=== PATIENT | female | born 1955 | race Caucasian/White ===

== ENCOUNTER 2018-10-16 06:05 | Day surgery (SDC) | payer MEDICARE, OTHER ==
[~2018-10-16] VITALS: Ht 170.2 cm; Wt 126.7 kg
[~2018-10-16 06:05] MED LIST: AVANDAMET; Colace100 MG PO; Percocet 5-3251 EACH PO; TRAN2
[2018-10-16] MEDS ORDERED: CLON.1 (07:37)
[2018-10-16] MEDS ORDERED: ALBU90OI6 (07:38)
[2018-10-16] MEDS ORDERED: LISI20 (07:38)
[2018-10-16] MEDS ORDERED: METF500 (07:38)
[2018-10-16] MEDS ORDERED: VITAMIN D5000 UNIT (07:39)
== END 2018-10-16 09:04 | disposition home or self-care (01) ==
LOC: ORSCSDS 06:05
PROVIDERS: Orthopaedic Surgery
PROC: 0LN80ZZ Release Left Hand Tendon, Open Approach (ICD-10-PCS; principal; 2018-10-16 07:30)
PROC: 0JNK0ZZ Release Left Hand Subcutaneous Tissue and Fascia, Open Approach (ICD-10-PCS; principal; 2018-10-16 07:30)
DX: M72.0 Palmar fascial fibromatosis [Dupuytren] (principal); K21.9 Gastro-esophageal reflux disease without esophagitis; E11.9 Type 2 diabetes mellitus without complications; J45.909 Unspecified asthma, uncomplicated; M79.7 Fibromyalgia; Z87.891 Personal history of nicotine dependence; Z79.84 Long term (current) use of oral hypoglycemic drugs
CPT/HCPCS: 82947; 88304; J2250; J3010; J7120

== ENCOUNTER 2021-01-09 12:53 | Inpatient (IN) | payer MEDICARE ==
[~2021-01-09] VITALS: Ht 170.2 cm; Wt 127.0 kg
[~2021-01-09 12:53] MED LIST changes: +ALBU90OI6; +CLON.1 PO; +LISI20; +METF500 PO; +VITAMIN D31000 UNI1 PO
[2021-01-09 13:17] LABS: BASOPHILS ABSOLUTE AUTO 0.01 K/mm3 (0.00-0.23); BASOPHILS PERCENT AUTO 0 % (0-2); EOSINOPHILS PERCENT AUTO 0 % (0-6); Hematocrit 37.1 % (33.0-51.0); IMMATURE GRAN ABSOLUTE AUTO 0.04 K/mm3 (0.00-0.10); IMMATURE GRAN PERCENT AUTO 1 % (0-1); LYMPHOCYTES ABSOLUTE AUTO 0.68 K/mm3 (0.84-5.20); LYMPHOCYTES PERCENT AUTO 10 % (21-46); MONOCYTES ABSOLUTE AUTO 0.35 K/mm3 (0.16-1.47); MONOCYTES PERCENT AUTO 5 % (4-13); Mean Corpuscular Volume 86 fL (80-100); Mean Platelet Volume 10.7 fL (9.1-12.4); NEUTROPHILS PERCENT AUTO 85 % (41-73); Platelet Count 215 K/mm3 (150-400); RDW Coefficient Variation 13.2 % (11.7-14.2); RDW Standard Deviation 41.7 fL (35.1-46.3); Red Blood Cell Count 4.33 M/mm3 (3.80-5.20); White Blood Cell Count 7.08 K/mm3 (4.00-11.30)
[2021-01-09 13:41] LABS: Alanine Aminotransfer (ALT/SGP 47 U/L (12-78); Albumin, Blood 2.8 g/dL (3.4-5.0); Albumin/Globulin Ratio 0.7 (0.8-1.8); Alk Phos 98 U/L (50-136); Anion Gap 10 mmol/L (6-16); Aspartate Aminotrans (AST/SGOT 60 U/L (12-37); Bilirubin, Total 0.7 mg/dL (0.1-1.0); Blood Urea Nitrogen 13 mg/dL (8-24); CO2, Blood 23 mmol/L (21-32); Calcium, Blood 8.5 mg/dL (8.5-10.1); Chloride, Blood 99 mmol/L (98-108); Creatinine, Blood 0.68 mg/dL (0.40-1.00); Ferritin, Serum 866 ng/mL (8-252); Globulin, Blood 3.8 g/dL (2.2-4.0); Glomerular Filtration Rate >60 (60-); Glucose, Blood 103 mg/dL (70-99); Lactate Dehydrogenase (Ld),Bld 532 U/L (100-240); Sodium, Blood 132 mmol/L (136-145); Total Protein, Blood 6.6 g/dL (6.4-8.2)
[2021-01-09] MEDS ORDERED: SYMBICORT 80-10.2 GM INH (14:22)
[2021-01-09] MEDS ORDERED: Prinivil10 MG PO (14:23)
[2021-01-09] MEDS ORDERED: GLIP5 PO (14:24)
--- NOTE | 2021-01-09 19:43 | NUR ---
SHIFT SUMMARY: PATIENT ADMIT (INPT) FROM ED THIS SHIFT. PT A&O; CALM AND COOPERATIVE WITH CARE. NO C/O PAIN THIS SHIFT. IV STEROIDS & ANTIVIRALS CONTINUING. REPORT GIVEN TO ONCOMING RN.
[2021-01-10 06:52] LABS: BASOPHILS ABSOLUTE AUTO 0.01 K/mm3 (0.00-0.23); BASOPHILS PERCENT AUTO 0 % (0-2); EOSINOPHILS PERCENT AUTO 0 % (0-6); Hematocrit 37.8 % (33.0-51.0); Hemoglobin 13.1 g/dL (11.5-16.0); Mean Corpuscular HGB 30.2 pg (26.0-34.0); Mean Corpuscular HGB Conc 34.7 g/dL (31.5-36.5); Mean Corpuscular Volume 87 fL (80-100); Mean Platelet Volume 11.4 fL (9.1-12.4); Platelet Count 185 K/mm3 (150-400); RDW Coefficient Variation 13.2 % (11.7-14.2); RDW Standard Deviation 41.8 fL (35.1-46.3); Red Blood Cell Count 4.34 M/mm3 (3.80-5.20); White Blood Cell Count 3.95 K/mm3 (4.00-11.30)
[2021-01-10 06:53] LABS: IMMATURE GRAN ABSOLUTE AUTO 0.05 K/mm3 (0.00-0.10); IMMATURE GRAN PERCENT AUTO 1 % (0-1); LYMPHOCYTES ABSOLUTE AUTO 0.77 K/mm3 (0.84-5.20); LYMPHOCYTES PERCENT AUTO 20 % (21-46); MONOCYTES ABSOLUTE AUTO 0.36 K/mm3 (0.16-1.47); MONOCYTES PERCENT AUTO 9 % (4-13); NEUTROPHILS ABSOLUTE AUTO 2.76 K/mm3 (1.96-9.15); NEUTROPHILS PERCENT AUTO 70 % (41-73)
[2021-01-10 07:13] LABS: Alanine Aminotransfer (ALT/SGP 46 U/L (12-78); Albumin, Blood 2.5 g/dL (3.4-5.0); Albumin/Globulin Ratio 0.6 (0.8-1.8); Alk Phos 98 U/L (50-136); Anion Gap 10 mmol/L (6-16); Aspartate Aminotrans (AST/SGOT 46 U/L (12-37); Bilirubin, Total 0.6 mg/dL (0.1-1.0); Blood Urea Nitrogen 19 mg/dL (8-24); Bun/Creatinine Ratio 30.2 (12.0-20.0); CO2, Blood 22 mmol/L (21-32); Calcium, Blood 8.5 mg/dL (8.5-10.1); Chloride, Blood 100 mmol/L (98-108); Creatinine, Blood 0.63 mg/dL (0.40-1.00); Globulin, Blood 4.3 g/dL (2.2-4.0); Glomerular Filtration Rate >60 (60-); Glucose, Blood 222 mg/dL (70-99); Sodium, Blood 132 mmol/L (136-145); Total Protein, Blood 6.8 g/dL (6.4-8.2)
[2021-01-10 07:35] LABS: BASOPHILS PERCENT MAN 0 % (0-2); EOSINOPHILS PERCENT MAN 0 % (0-6); LYMPHOCYTES ABSOLUTE MAN 0.67 K/mm3 (0.84-5.20); LYMPHOCYTES PERCENT MAN 17 % (21-46); MONOCYTES ABSOLUTE MAN 0.19 K/mm3 (0.16-1.47); MONOCYTES PERCENT MAN 5 % (4-13); MYELOCYTE ABSOLUTE MAN 0.03 K/mm3 (0.00-0.00); MYELOCYTE PERCENT MAN 1 % (0-0); NEUTROPHILS ABSOLUTE MAN 3.04 K/mm3 (1.96-9.15); SEG NEUTROPHILS PERCENT MAN 77 % (41-73); TOTAL CELLS COUNTED 100
--- NOTE | 2021-01-10 11:25 | NUR ---
Introduction: PT self referal. Assessment: PT presented sitting upright in bed, pleasant demeanor. PT said request for visit, was for prayer. PT has son and also, both at home with Covid, that she is worried for. PT spoke optimistically of returning home soon and spending time sitting on her outside deck and reading her bible. Intervention: PT offered prayer. PT offered scripture reading. Outcome: PT received prayer. PT received scripture reading. Follow-Up: As needed or requested.
--- NOTE | 2021-01-10 20:10 | NUR ---
SHIFT SUMMARY: NO ACUTE EVENTS TO REPORT THIS SHIFT. PT A&O ; CALM AND COOPERATIVE WITH CARE. NO C/O PAIN THIS SHIFT. STEROIDS & REMDESEVIR CONTINUING. REPORT GIVEN TO ONCOMING RN.
[2021-01-11 05:37] LABS: Anion Gap 8 mmol/L (6-16); Blood Urea Nitrogen 21 mg/dL (8-24); Bun/Creatinine Ratio 35.7 (12.0-20.0); CO2, Blood 24 mmol/L (21-32); Calcium, Blood 8.8 mg/dL (8.5-10.1); Chloride, Blood 101 mmol/L (98-108); Creatinine, Blood 0.59 mg/dL (0.40-1.00); Glomerular Filtration Rate >60 (60-); Glucose, Blood 291 mg/dL (70-99); Potassium, Blood 3.8 mmol/L (3.5-5.5); Sodium, Blood 133 mmol/L (136-145)
--- NOTE | 2021-01-12 05:08 | NUR ---
SHIFT SUMMARY AOX4. SLOW TO RESPOND. DENIES SOB. COVID +. SPO2 @88% ON 10L OXIMIZER, INCREASED O2 TO 14L c SPO2 @91%. REST OF VSS. DENIES PAIN, N/V. ASSISTED c SHOWER TONIGHT. CALL LIGHT IN REACH.
--- NOTE | 2021-01-12 18:40 | NUR ---
PT IS COVID POSITIVE, NO TELE, PT DENIES PAIN, N/V, SOB PT IS ALERT ORIENTED, PT IS STANDBY ASSIST, PT IS RESTING IN BED, BED IN LOW POSITON, CALL LIGHT WITHIN [facility] [place], WILL CONTINUE TO MONITOR
[2021-01-13 05:13] LABS: BASOPHILS ABSOLUTE AUTO 0.02 K/mm3 (0.00-0.23); BASOPHILS PERCENT AUTO 0 % (0-2); EOSINOPHILS PERCENT AUTO 0 % (0-6); Hematocrit 36.4 % (33.0-51.0); Hemoglobin 12.8 g/dL (11.5-16.0); IMMATURE GRAN ABSOLUTE AUTO 0.14 K/mm3 (0.00-0.10); IMMATURE GRAN PERCENT AUTO 1 % (0-1); LYMPHOCYTES ABSOLUTE AUTO 1.41 K/mm3 (0.84-5.20); LYMPHOCYTES PERCENT AUTO 15 % (21-46); MONOCYTES ABSOLUTE AUTO 0.38 K/mm3 (0.16-1.47); MONOCYTES PERCENT AUTO 4 % (4-13); Mean Corpuscular HGB 29.8 pg (26.0-34.0); Mean Corpuscular HGB Conc 35.2 g/dL (31.5-36.5); Mean Corpuscular Volume 85 fL (80-100); Mean Platelet Volume 10.4 fL (9.1-12.4); NEUTROPHILS ABSOLUTE AUTO 7.73 K/mm3 (1.96-9.15); NEUTROPHILS PERCENT AUTO 80 % (41-73); Platelet Count 305 K/mm3 (150-400); RDW Coefficient Variation 13.4 % (11.7-14.2); RDW Standard Deviation 41.7 fL (35.1-46.3); White Blood Cell Count 9.68 K/mm3 (4.00-11.30)
--- NOTE | 2021-01-13 05:34 | NUR ---
SUMMARY: PT A/OX2-3 BUT IS VERY FORGETFUL AND CALLS FREQUENTLY FOR NON-ACUTE DEMANDS. SHE'S SBA OOB AND CONTINENT TO THE BSC. SHE REMAINS ON 14L OXIMIZER W/O S/S SOB OR DYSPNEA. NO PAIN/COMPLAINTS AND VSS W/O ACUTE CHANGES. WCTM AND REPORT TO DAY RN.
[2021-01-13 05:46] LABS: Alanine Aminotransfer (ALT/SGP 56 U/L (12-78); Albumin, Blood 2.7 g/dL (3.4-5.0); Albumin/Globulin Ratio 0.7 (0.8-1.8); Alk Phos 100 U/L (50-136); Anion Gap 6 mmol/L (6-16); Aspartate Aminotrans (AST/SGOT 40 U/L (12-37); Bilirubin, Total 0.6 mg/dL (0.1-1.0); Blood Urea Nitrogen 11 mg/dL (8-24); Bun/Creatinine Ratio 19.2 (12.0-20.0); CO2, Blood 24 mmol/L (21-32); Chloride, Blood 108 mmol/L (98-108); Creatinine, Blood 0.57 mg/dL (0.40-1.00); Globulin, Blood 3.9 g/dL (2.2-4.0); Glomerular Filtration Rate >60 (60-); Glucose, Blood 182 mg/dL (70-99); Potassium, Blood 3.6 mmol/L (3.5-5.5); Sodium, Blood 138 mmol/L (136-145); Total Protein, Blood 6.6 g/dL (6.4-8.2)
--- NOTE | 2021-01-13 11:08 | NUR ---
Introduction: PT refered by nursing staff. Assessment: PT presented seated in bed, with pleasant demeanor. PT expressed worry and anxiety, in regards to hospital stay and also, being unable to care for and son at home, both of whom are ill with Covid. PT related how dear scripture is to her well being and dissapointment when scripture cannot be recalled by memory. Visit was shortened due to medication being administered. Intervention: PT offered scripture reading. Outcome: PT received scripture reading and was encouraged enought to recall other scripture from memory. Follow-Up: As needed or requested.
--- NOTE | 2021-01-13 18:53 | NUR ---
PT IS COVID POSITIVE, PT HAVE SOB WITH ACTIVITIES, PT HAVE PRN MEDS ORDER FOR PAIN, PT IS STANDBY ASSIST,PT IS FORGETFULL AT TIMES, PT IS AO, PT ON 15L OXYMIZER, PT IS BED, BED IN LOW POSITION, CALL LIGHT WITHIN REACH,WILL CONTINUE TO MONITOR.
--- NOTE | 2021-01-13 19:00 | NUR ---
ASSUMED CARE RECEIVED REPORT FROM GIOVANNA PABLO. PT RESTING, IN NAD. NO ACUTE NEEDS ASSESSED AT THIS TIME. CALL LIGHT, POSSESSIONS IN REACH, BED IN LOW AND LOCKED POSITION WITH ALARMS ON. TM.
[2021-01-14 05:32] LABS: BASOPHILS ABSOLUTE AUTO 0.02 K/mm3 (0.00-0.23); BASOPHILS PERCENT AUTO 0 % (0-2); EOSINOPHILS PERCENT AUTO 0 % (0-6); Hematocrit 38.2 % (33.0-51.0); Hemoglobin 13.3 g/dL (11.5-16.0); IMMATURE GRAN ABSOLUTE AUTO 0.14 K/mm3 (0.00-0.10); IMMATURE GRAN PERCENT AUTO 1 % (0-1); LYMPHOCYTES ABSOLUTE AUTO 1.51 K/mm3 (0.84-5.20); LYMPHOCYTES PERCENT AUTO 12 % (21-46); MONOCYTES ABSOLUTE AUTO 0.37 K/mm3 (0.16-1.47); MONOCYTES PERCENT AUTO 3 % (4-13); Mean Corpuscular HGB 29.7 pg (26.0-34.0); Mean Corpuscular HGB Conc 34.8 g/dL (31.5-36.5); Mean Corpuscular Volume 85 fL (80-100); Mean Platelet Volume 11.1 fL (9.1-12.4); NEUTROPHILS ABSOLUTE AUTO 10.35 K/mm3 (1.96-9.15); NEUTROPHILS PERCENT AUTO 84 % (41-73); Platelet Count 346 K/mm3 (150-400); RDW Coefficient Variation 13.5 % (11.7-14.2); RDW Standard Deviation 42.3 fL (35.1-46.3); Red Blood Cell Count 4.48 M/mm3 (3.80-5.20); White Blood Cell Count 12.39 K/mm3 (4.00-11.30)
[2021-01-14 06:09] LABS: Alanine Aminotransfer (ALT/SGP 63 U/L (12-78); Albumin, Blood 2.7 g/dL (3.4-5.0); Albumin/Globulin Ratio 0.7 (0.8-1.8); Alk Phos 113 U/L (50-136); Anion Gap 6 mmol/L (6-16); Aspartate Aminotrans (AST/SGOT 40 U/L (12-37); Bilirubin, Total 0.6 mg/dL (0.1-1.0); Blood Urea Nitrogen 11 mg/dL (8-24); CO2, Blood 25 mmol/L (21-32); Calcium, Blood 9.2 mg/dL (8.5-10.1); Chloride, Blood 107 mmol/L (98-108); Creatinine, Blood 0.55 mg/dL (0.40-1.00); Glomerular Filtration Rate >60 (60-); Glucose, Blood 189 mg/dL (70-99); Potassium, Blood 3.5 mmol/L (3.5-5.5); Sodium, Blood 138 mmol/L (136-145); Total Protein, Blood 6.7 g/dL (6.4-8.2)
--- NOTE | 2021-01-14 06:56 | NUR ---
SHIFT SUMMARY PT RESTING, IN NAD. NO ACUTE NEEDS ASSESSED AT THIS TIME. VS REVIEWED, O2 SATS 90-93% ON 16L/OXYMIZER; OTHER VS WNL. NO ACUTE CONCERNS TO REPORT OVERNIGHT, APPEARED TO SLEEP WELL. CALL LIGHT, POSSESSIONS IN REACH, BED IN LOW AND LOCKED POSITION WITH ALARMS ON. REPORT GIVEN TO GIOVANNA GONZALEZ.
--- NOTE | 2021-01-14 18:27 | NUR ---
a+orintated to self and place, medicated for back pain to pt satisfaction, call light in reach, saline locked, 13L via oximizer, will continue to monitor and treat until share bsr with noc nurse
--- NOTE | 2021-01-14 19:05 | NUR ---
ASSUMED CARE RECEIVED REPORT FROM GIOVANNA GONZALEZ. PT RESTING, IN NAD. NO ACUTE NEEDS ASSESSED AT THIS TIME. CALL LIGHT, POSSESSIONS IN REACH, BED IN LOW AND LOCKED POSITION WITH ALARMS ON.
[2021-01-15 05:46] LABS: BASOPHILS ABSOLUTE AUTO 0.04 K/mm3 (0.00-0.23); BASOPHILS PERCENT AUTO 0 % (0-2); EOSINOPHILS ABSOLUTE AUTO 0.06 K/mm3 (0.00-0.68); EOSINOPHILS PERCENT AUTO 1 % (0-6); Hematocrit 37.6 % (33.0-51.0); Hemoglobin 13.3 g/dL (11.5-16.0); IMMATURE GRAN ABSOLUTE AUTO 0.21 K/mm3 (0.00-0.10); IMMATURE GRAN PERCENT AUTO 2 % (0-1); LYMPHOCYTES ABSOLUTE AUTO 1.45 K/mm3 (0.84-5.20); LYMPHOCYTES PERCENT AUTO 14 % (21-46); MONOCYTES PERCENT AUTO 4 % (4-13); Mean Corpuscular HGB Conc 35.4 g/dL (31.5-36.5); Mean Corpuscular Volume 85 fL (80-100); Mean Platelet Volume 10.9 fL (9.1-12.4); NEUTROPHILS ABSOLUTE AUTO 8.53 K/mm3 (1.96-9.15); NEUTROPHILS PERCENT AUTO 80 % (41-73); Platelet Count 314 K/mm3 (150-400); RDW Coefficient Variation 13.5 % (11.7-14.2); RDW Standard Deviation 42.3 fL (35.1-46.3); Red Blood Cell Count 4.43 M/mm3 (3.80-5.20); White Blood Cell Count 10.69 K/mm3 (4.00-11.30)
[2021-01-15 06:16] LABS: Alanine Aminotransfer (ALT/SGP 61 U/L (12-78); Albumin, Blood 2.5 g/dL (3.4-5.0); Albumin/Globulin Ratio 0.7 (0.8-1.8); Alk Phos 126 U/L (50-136); Anion Gap 7 mmol/L (6-16); Aspartate Aminotrans (AST/SGOT 31 U/L (12-37); Bilirubin, Total 0.7 mg/dL (0.1-1.0); Blood Urea Nitrogen 13 mg/dL (8-24); Bun/Creatinine Ratio 21.7 (12.0-20.0); CO2, Blood 24 mmol/L (21-32); Calcium, Blood 8.9 mg/dL (8.5-10.1); Chloride, Blood 106 mmol/L (98-108); Globulin, Blood 3.8 g/dL (2.2-4.0); Glomerular Filtration Rate >60 (60-); Glucose, Blood 207 mg/dL (70-99); Potassium, Blood 3.6 mmol/L (3.5-5.5); Sodium, Blood 137 mmol/L (136-145); Total Protein, Blood 6.3 g/dL (6.4-8.2)
--- NOTE | 2021-01-15 07:00 | NUR ---
SHIFT SUMMARY PT RESTING, IN NAD. APPEARED INCREASINGLY CONFUSED AT TIMES T/O NIGHT, RE-DIRECTABLE. VS REVIEWED,WNL. NO OTHER ACUTE CONCERNS TO REPORT OVERNIGHT. DENIES NEEDS AT THIS TIME. CALL LIGHT, POSSESSIONS IN REACH, BED IN LOW AND LOCKED POSITION WITH ALARMS ON. REPORT GIVEN TO GIOVANNA SHORT.
--- NOTE | 2021-01-15 18:34 | NUR ---
SHIFT SUMMARY PT IS AO WITH CONFUSION. PT MEDICATED FOR ANXIETY X2 THIS SHIFT. PT INSISTS ONN LEAVING FACILITY SINCE ADMIT. PT IS ON 13 L VIA OXYMIZER. PT DENIES N/V, SOB. ENHANCED ISOLATION PRECAUTIONS MAINTAINED T/O SHIFT. PT IS ONE ASSIST TO BCC. PT IS IN BED, CALL LIGHT IN REACH, LOW POSITION.
[2021-01-16 00:33] LABS: PCO2 Arterial 31.6 mmHg (35-45); PO2 Arterial 53.5 mmHg (80-100); pH Blood Arterial 7.49 (7.35-7.45)
--- NOTE | 2021-01-16 04:23 | NUR ---
SHIFT SUMMARY PT CONFUSED AND SLEEPY T/O SHIFT, REMOVING O2 CONTINUALLY, TITRATED O2 TO 4L NC- CURRENT O2 SATS=94% DESATS W/ACTIVITY, SLEPT T/O SHIFT, UP W/MINIMAL ASSIST TO BSC, SLEEPING AT THIS TIME, CALL LIGHT IN REACH, WILL CONT TO MONITOR UNTIL REPORT GIVEN TO DAY RN.
--- NOTE | 2021-01-16 16:24 | NUR ---
SHIFT SUMMARY PT IS AOX4 THIS AM WITH INTERMITTENT CONFUSION THIS ROCKY. PT DENIES PAIN, N/V, SOB. PT IS ONE ASSIST IN ROOM. ENHANCED ISOLATION PRECAUTIONS MAINTAINED T/O SHIFT. PT APPETITE IS POOR TO GOOD DEPENDING ON MEAL. PT IS ON 4 L O2 VIA NC WITH SATS GREATER THAN 90%. PT FREQUENTLY REMOVES O2. PT HOPES TO DC HOME TOMORROW. PT IS AWAITING BM AFTER BOWEL PROTOCOL. PT IS ONE ASSIST TO BCC AND TIRES WITH EXERTION. PT IS IN BED, CALL LIGHT IN REACH, LOW POSITION.
--- NOTE | 2021-01-17 04:48 | NUR ---
SHIFT SUMMARY NO ACUTE CHANGES THIS SHIFT, CONTINUES TO REMOVE 02 FREQUENTLY STATES THAT IT "DRIES OUT SINUSES", ADDED HUMIDIFIER BUT PT CONTINUES TO "FORGET" TO LEAVE NC IN PLACE, SLEPT WELL T/O THE NIGHT & SLEEPING AT THIS TIME, CALL LIGHT IN PLACE, WILL CONT TO MONITOR UNTIL REPORT GIVEN TO DAY RN.
[2021-01-17 09:46] LABS: BASOPHILS ABSOLUTE AUTO 0.05 K/mm3 (0.00-0.23); BASOPHILS PERCENT AUTO 0 % (0-2); EOSINOPHILS ABSOLUTE AUTO 0.24 K/mm3 (0.00-0.68); EOSINOPHILS PERCENT AUTO 2 % (0-6); Hematocrit 43.2 % (33.0-51.0); Hemoglobin 14.8 g/dL (11.5-16.0); IMMATURE GRAN ABSOLUTE AUTO 0.32 K/mm3 (0.00-0.10); IMMATURE GRAN PERCENT AUTO 2 % (0-1); LYMPHOCYTES ABSOLUTE AUTO 1.87 K/mm3 (0.84-5.20); LYMPHOCYTES PERCENT AUTO 13 % (21-46); MONOCYTES ABSOLUTE AUTO 0.73 K/mm3 (0.16-1.47); MONOCYTES PERCENT AUTO 5 % (4-13); Mean Corpuscular HGB 30.1 pg (26.0-34.0); Mean Corpuscular HGB Conc 34.3 g/dL (31.5-36.5); Mean Corpuscular Volume 88 fL (80-100); NEUTROPHILS PERCENT AUTO 78 % (41-73); Platelet Count 429 K/mm3 (150-400); RDW Coefficient Variation 13.8 % (11.7-14.2); RDW Standard Deviation 43.7 fL (35.1-46.3); Red Blood Cell Count 4.92 M/mm3 (3.80-5.20); White Blood Cell Count 14.81 K/mm3 (4.00-11.30)
[2021-01-17 10:03] LABS: Anion Gap 7 mmol/L (6-16); Blood Urea Nitrogen 17 mg/dL (8-24); Bun/Creatinine Ratio 22.1 (12.0-20.0); CO2, Blood 25 mmol/L (21-32); Calcium, Blood 9.3 mg/dL (8.5-10.1); Chloride, Blood 103 mmol/L (98-108); Creatinine, Blood 0.77 mg/dL (0.40-1.00); Glomerular Filtration Rate >60 (60-); Glucose, Blood 235 mg/dL (70-99); Sodium, Blood 135 mmol/L (136-145)
--- NOTE | 2021-01-17 15:06 | NUR ---
TRANSFER ROOMS ASSUMED CARE OF PT AT 1315, MEDICATED WITH APAT FOR C/O LOW BACK PAIN. NEW ROOM ASSGNED FOR PT TO SHARE ROOM WITH WHO IS ALSO ADMITTED FOR COVID. REPORT GIVEN TO LILLIAM AND PT TRANSFERRED TO RM 308-1.
--- NOTE | 2021-01-17 15:42 | NUR ---
ASSUMED CARE OF PT. REPORT RECEIVED FROM DELORIS HEREDIA. PT ORIENTED TO HER NEW ROOM, CALL LIGHT. NO ACUTE CONCERNS AT THIS TIME.
--- NOTE | 2021-01-17 18:19 | NUR ---
SHIFT SUMMARY: PT A/O STANDBY ASSIT. PT ON 3 LPM VIA NC, CONTINUES TO HAVE WET HARSH COUGH. PT HAS GOOD APPETITE. MOVED TO ROOM 308-01 NOW STAYS IN ROOM WITH HER SPOUSE. PT EDUCATED AND ENCOURAGED TO USE INCETIVE SPIROMETER. PT VU. NO ACUTE CHANGES THIS SHIFT.
--- NOTE | 2021-01-17 22:50 | NUR ---
BG OVER 350 DR. HARDING CALL AND NOTIFIED. OF BG OF 374 VERIFIED ON GLUCOSE MACHINE. PT TO RECEIVE 25 UNITS SEMGLEE. NO ADDITIONAL ORDERS GIVEN.
--- NOTE | 2021-01-18 05:23 | NUR ---
SHIFT SUMMARY NO ACUTE CHANGES TO REPORT THIS SHIFT. PT HAS RESTED MOST OF THE NIGHT. PT REMAINS ON 3L O2. RESP E/U. PT INDEPENDENT TO THE BSC. A/OX4 BUT IS VERY FORGETFUL. PT HAS NO RESPIRATORY COMPLAINTS. PLAN IS FOR POSSIBLE DC TODAY. BED IN LOWEST POSITION, CALL LIGHT WITHIN REACH.
[2021-01-18 09:20] LABS: BASOPHILS ABSOLUTE AUTO 0.06 K/mm3 (0.00-0.23); BASOPHILS PERCENT AUTO 1 % (0-2); EOSINOPHILS ABSOLUTE AUTO 0.14 K/mm3 (0.00-0.68); EOSINOPHILS PERCENT AUTO 1 % (0-6); Hematocrit 43.9 % (33.0-51.0); Hemoglobin 15.1 g/dL (11.5-16.0); IMMATURE GRAN ABSOLUTE AUTO 0.32 K/mm3 (0.00-0.10); IMMATURE GRAN PERCENT AUTO 3 % (0-1); LYMPHOCYTES ABSOLUTE AUTO 2.03 K/mm3 (0.84-5.20); LYMPHOCYTES PERCENT AUTO 16 % (21-46); MONOCYTES ABSOLUTE AUTO 0.76 K/mm3 (0.16-1.47); MONOCYTES PERCENT AUTO 6 % (4-13); Mean Corpuscular HGB 29.7 pg (26.0-34.0); Mean Corpuscular HGB Conc 34.4 g/dL (31.5-36.5); Mean Corpuscular Volume 86 fL (80-100); Mean Platelet Volume 11.5 fL (9.1-12.4); NEUTROPHILS ABSOLUTE AUTO 9.23 K/mm3 (1.96-9.15); NEUTROPHILS PERCENT AUTO 74 % (41-73); Platelet Count 370 K/mm3 (150-400); RDW Coefficient Variation 13.5 % (11.7-14.2); RDW Standard Deviation 42.6 fL (35.1-46.3); Red Blood Cell Count 5.08 M/mm3 (3.80-5.20); White Blood Cell Count 12.54 K/mm3 (4.00-11.30)
[2021-01-18 10:09] LABS: Anion Gap 9 mmol/L (6-16); Blood Urea Nitrogen 15 mg/dL (8-24); Bun/Creatinine Ratio 25.6 (12.0-20.0); CO2, Blood 23 mmol/L (21-32); Calcium, Blood 9.2 mg/dL (8.5-10.1); Chloride, Blood 103 mmol/L (98-108); Creatinine, Blood 0.59 mg/dL (0.40-1.00); Glomerular Filtration Rate >60 (60-); Glucose, Blood 213 mg/dL (70-99); Potassium, Blood 3.9 mmol/L (3.5-5.5); Sodium, Blood 135 mmol/L (136-145)
--- NOTE | 2021-01-18 11:41 | NUR ---
HOME O2 EVAL: PT SATS ON NO OXYGEN WAS 84%. PT ON 3 LPM VIA NC WAS 92%. PT O2 SATS WOULD NOT REGISTER ON METER WHILE AMBULATING. PT REQUESTS HOME O2 DUE TO COVID 19 ILLNESS.
[2021-01-18] MEDS ORDERED: Acetaminophen325 M1 PO (12:46)
[2021-01-18] MEDS ORDERED: PROAIR DIGIHAL90 MCG INH (12:48)
[2021-01-18] MEDS ORDERED: BENZ100A PO (12:48)
[2021-01-18] MEDS ORDERED: BUSP5 PO (12:49)
--- NOTE | 2021-01-18 15:03 | NUR ---
DISCHARGE NOTE: PT DISCHARGED TO HOME. PT INSTRUCTIONS GIVEN AND REQUESTED SHE CALL AND SET UP APPOINTMENT WITH PCP TODAY SINCE WE WERE UNABLE TO CONTACT NO ONE ANSWERED THE PHONE. PT VU. PT HAD NO IV. PT BELONGINGS PACKED AND SENT WITH HER. PT O2 TANK ARRIVED AND SHE WAS SENT ON 3 LPM VIA NC TO POV, WITH SON TAKING HER INTO HIS CARE. PT ESCORTED TO POV VIA WC BY HENRIETTA BARR.
== END 2021-01-18 14:40 | disposition home health service (06) | DRG 177 ==
LOC: ER 12:53 → MEDS 15:39 → ENPENDDIS 01-18 12:18 → MEDS 01-18 14:40
PROVIDERS: Emergency Medicine; Family Medicine; Internal Medicine; Nurse Practitioner Acute Care; ADMIT Hospitalist
PROC: 8E0ZXY6 Isolation (ICD-10-PCS; principal; 2021-01-09)
PROC: XW033E5 Introduction of Remdesivir Anti-infective into Peripheral Vein, Percutaneous Approach, New Technology Group 5 (ICD-10-PCS; 2021-01-09)
PROC: 3E0333Z Introduction of Anti-inflammatory into Peripheral Vein, Percutaneous Approach (ICD-10-PCS; 2021-01-09)
DX: U07.1 COVID-19 (principal); J96.01 Acute respiratory failure with hypoxia; J12.82 Pneumonia due to coronavirus disease 2019; Z68.41 Body mass index [BMI] 40.0-44.9, adult; E87.1 Hypo-osmolality and hyponatremia; J44.0 Chronic obstructive pulmonary disease with (acute) lower respiratory infection; G72.81 Critical illness myopathy; E66.01 Morbid (severe) obesity due to excess calories; R19.7 Diarrhea, unspecified; E11.65 Type 2 diabetes mellitus with hyperglycemia; F41.9 Anxiety disorder, unspecified; M62.838 Other muscle spasm; I10 Essential (primary) hypertension; Z88.1 Allergy status to other antibiotic agents; Z88.5 Allergy status to narcotic agent; Z88.0 Allergy status to penicillin; Z98.890 Other specified postprocedural states; Z79.84 Long term (current) use of oral hypoglycemic drugs; Z79.899 Other long term (current) drug therapy; Z87.891 Personal history of nicotine dependence
CPT/HCPCS: 36415; 36600; 71045; 80048; 80053; 82728; 82803; 82947; 83036; 83615; 83880; 85025; 85379; 93005; 93010; 94640; 94664; 94760; 94762; 96365; 96375; 97110; 97116; 97162; 99285-25; A9270; C9113; J1100; J1650; J1815; J3010; J7030

== ENCOUNTER → 2021-03-02 | Outpatient (CLI) | payer MEDICARE ==
[~2021-03-02] MED LIST changes: +Acetaminophen325 M1 PO; +BENZ100A PO; +BUSP5 PO; +GLIP5 PO; +PROAIR DIGIHAL90 MCG INH; +Prinivil10 MG PO; +SYMBICORT 80-10.2 GM INH
== END ==
LOC: LAB SHORT 17:00
DX: L97.509 Non-pressure chronic ulcer of other part of unspecified foot with unspecified severity (principal); Z88.0 Allergy status to penicillin; Z88.1 Allergy status to other antibiotic agents; Z88.5 Allergy status to narcotic agent
CPT/HCPCS: 87070; 87075; 87205

== ENCOUNTER 2022-12-20 11:08 | Day surgery (SDC) | payer MEDICARE ==
[~2022-12-20] VITALS: Ht 170.2 cm; Wt 120.2 kg
--- NOTE | 2022-12-20 11:52 | NUR ---
12/20/22 1152 Dandy Quintana CALL LIGHT WITHIN REACH. TETRACAINE IN RIGHT EYE AT 1135 AND PLEDGETT IN AT 1136
[2022-12-20 13:30] VITALS: BP 141/64
--- NOTE | 2022-12-20 13:43 | NUR ---
12/20/22 1343 Mary Kate Corey IV REMOVED, CANNULA INTACT PT TOLERATED WELL. IV SITE WNL. PT DENIES PAIN AND NAUSEA
== END 2022-12-20 13:49 | disposition home or self-care (01) ==
LOC: ORSCSDS 11:08
PROVIDERS: Ophthalmology
PROC: 08RJ3JZ Replacement of Right Lens with Synthetic Substitute, Percutaneous Approach (ICD-10-PCS; principal; 2022-12-20 13:00)
DX: E11.36 Type 2 diabetes mellitus with diabetic cataract (principal); H25.11 Age-related nuclear cataract, right eye; I10 Essential (primary) hypertension; J45.909 Unspecified asthma, uncomplicated; E66.9 Obesity, unspecified; Z68.41 Body mass index [BMI] 40.0-44.9, adult; Z79.84 Long term (current) use of oral hypoglycemic drugs; Z79.899 Other long term (current) drug therapy
CPT/HCPCS: 82947; J2001; J2250; J3010; J3301; J7040; V2632

== ENCOUNTER 2022-12-27 11:42 | Day surgery (SDC) | payer MEDICARE ==
[~2022-12-27] VITALS: Ht 170.2 cm; Wt 121.1 kg
--- NOTE | 2022-12-27 11:59 | NUR ---
12/27/22 1159 Nery Mckinley TETRACAINE TO LEFT EYE AT 1155 PLEDGET TO LEFT EYE AT 1156 BY [facility].GIULIA
[2022-12-27 13:41] VITALS: BP 137/62
--- NOTE | 2022-12-27 15:13 | NUR ---
12/27/22 1513 Luis Eduardo Uriarte IV REMOVED INTACT. SITE WNL.
== END 2022-12-27 13:58 | disposition home or self-care (01) ==
LOC: ORSCSDS 11:42
PROVIDERS: Ophthalmology
PROC: 08DK3ZZ Extraction of Left Lens, Percutaneous Approach (ICD-10-PCS; principal; 2022-12-27 13:00)
DX: E11.36 Type 2 diabetes mellitus with diabetic cataract (principal); H25.13 Age-related nuclear cataract, bilateral; I10 Essential (primary) hypertension; J45.909 Unspecified asthma, uncomplicated; E66.01 Morbid (severe) obesity due to excess calories; Z68.41 Body mass index [BMI] 40.0-44.9, adult; Z79.84 Long term (current) use of oral hypoglycemic drugs; Z79.899 Other long term (current) drug therapy
CPT/HCPCS: 82947; J2001; J2250; J3010; J3301; J7040; V2632

== ENCOUNTER 2023-10-30 06:04 | Day surgery (SDC) | payer MEDICARE ==
[~2023-10-30 06:04] MED LIST changes: +GLIP2.5ER PO; +METFORMIN HCL500 MG PO
[2023-10-30] MEDS ORDERED: Clindamycin 900mg in D5W 50ML 50 ML IV ONE (06:28)
[2023-10-30] MEDS ORDERED: Lactated Ringer's 1,000 ML IV ONE ×2 (06:28→07:08)
[2023-10-30] MEDS ORDERED: Vancomycin HCL 1,000 MG in NS 100 ML IV SCH (06:50)
--- NOTE | 2023-10-30 06:52 | NUR ---
PER PT HX AND FAMILY HX OF MALIGNNT HYPERTHERMIA
[2023-10-30] MEDS ORDERED: propofoL 0 ML IV ONE (06:53)
[2023-10-30] MEDS ORDERED: Ondansetron HCl 2 MG / ML 2ML Vial ONE (06:53)
[2023-10-30] MEDS ORDERED: FentaNYL Citrate 50 MCG/ML 2 ML Injection ONE (06:53)
[2023-10-30] MEDS ORDERED: Midazolam HCl 1MG / ML 2ML Vial ONE (06:53)
[2023-10-30] MEDS ORDERED: Dexamethasone Sod Phos 10 MG/ML 1ML VIAL ONE (06:53)
[2023-10-30] MEDS ORDERED: EPINEPhrine HCl 1 MG/ML 1ML Amp ONE (06:56)
[2023-10-30] MEDS ORDERED: Lidocaine 2%-Epineph 1:200000 20 ML SDV ONE (06:57)
[2023-10-30] MEDS ORDERED: Bupivacaine 0.5% HCl 5 MG/ML 30MLVIAL ONE (06:57)
[2023-10-30 07:00] VITALS: BP 131/56
[2023-10-30] MEDS ORDERED: Dexmedetomidine HCL 200 MCG / 2 ML ONE (07:09)
--- NOTE | 2023-10-30 07:10 | NUR ---
10/30/23 0710 Merry Meier PT NOT COMPLIANT WITH CHANGING OUT OF CLOTHING. REQUIRED CHARGE NURSE TO COME IN TO HAVE PT REMOVE BRA WITH METAL AND NECKLACE. SON TANYA WILL HAVE NECKLACE
== END 2023-10-30 07:45 | disposition home or self-care (01) ==
LOC: ORSCSDS 06:04
DX: M72.0 Palmar fascial fibromatosis [Dupuytren] (principal); Z53.9 Procedure and treatment not carried out, unspecified reason
CPT/HCPCS: 82947; J0171; J1100; J2250; J2405; J2704; J3010; J3370; J7120

== ENCOUNTER 2024-01-20 09:34 | Emergency (ER) | payer MEDICARE ==
[~2024-01-20] VITALS: Ht 170.2 cm; Wt 117.9 kg
[2024-01-20 09:56] VITALS: BP 154/124
[2024-01-20] MEDS ORDERED: Rabies Vaccine (Pcec)/Pf 1 mL 2.5 Unit Kit IM ONE (10:00)
== END 2024-01-20 09:58 | disposition home or self-care (01) ==
LOC: ER 09:34
DX: Z20.3 Contact with and (suspected) exposure to rabies (principal); Z23 Encounter for immunization
CPT/HCPCS: 90471

== ENCOUNTER 2024-01-27 08:39 | Emergency (ER) | payer MEDICARE ==
[~2024-01-27] VITALS: Ht 170.2 cm; Wt 120.2 kg
[2024-01-27 08:50] VITALS: BP 145/72
[2024-01-27] MEDS ORDERED: Rabies Vaccine (Pcec)/Pf 1 mL 2.5 Unit Kit IM ONE (08:55)
== END 2024-01-27 09:25 | disposition home or self-care (01) ==
LOC: ER 08:39
DX: Z23 Encounter for immunization (principal); E11.9 Type 2 diabetes mellitus without complications; Z88.0 Allergy status to penicillin; Z88.1 Allergy status to other antibiotic agents; Z88.5 Allergy status to narcotic agent; Z79.84 Long term (current) use of oral hypoglycemic drugs; Z79.899 Other long term (current) drug therapy
CPT/HCPCS: 90471

== ENCOUNTER → 2024-04-10 | Outpatient (CLI) | payer MEDICARE | END | disposition home or self-care (01) | LOC: LAB SHORT 18:05 → LAB 18:05 | DX: L02.92 Furuncle, unspecified (principal) | CPT/HCPCS: 87070; 87075; 87205 ==

== ENCOUNTER → 2025-03-20 | Outpatient (CLI) | payer MEDICARE ==
[2025-03-20 14:46] LABS: Creatinine, Urine Random 20.80 mg/dL (27.00-270.00)
[2025-03-20 14:48] LABS: Microalb/Creat Ratio UR, Rand Unable to Calculate mg/g (0.000-30.000); Microalbumin, Random Urine <5.000 mg/L (0.000-20.000)
== END ==
LOC: LAB 06:00 → LAB SHORT 06:00
PROVIDERS: Family Medicine
DX: E11.69 Type 2 diabetes mellitus with other specified complication (principal)
CPT/HCPCS: 82043; 82570

== ENCOUNTER 2025-04-23 09:28 | Emergency (ER) | payer MEDICARE ==
[~2025-04-23] VITALS: Ht 170.2 cm; Wt 108.4 kg
[2025-04-23] MEDS ORDERED: EPIPEN0.3 MG/0.3 IM (10:33)
[2025-04-23 10:45] VITALS: BP 113/60
== END 2025-04-23 10:56 | disposition home or self-care (01) ==
LOC: ER 09:28
DX: T78.19XA Other adverse food reactions, not elsewhere classified, initial encounter (principal); I10 Essential (primary) hypertension; J45.909 Unspecified asthma, uncomplicated; E11.9 Type 2 diabetes mellitus without complications; Z87.891 Personal history of nicotine dependence; Z90.49 Acquired absence of other specified parts of digestive tract; Z88.0 Allergy status to penicillin; Z88.1 Allergy status to other antibiotic agents; Z88.5 Allergy status to narcotic agent; Z79.84 Long term (current) use of oral hypoglycemic drugs; Z79.899 Other long term (current) drug therapy
CPT/HCPCS: 99283; A9270